=== PATIENT | male | born 1990 | race Caucasian/White ===

== ENCOUNTER 2017-07-11 23:01 | Emergency (ER) | payer OTHER ==
[~2017-07-11] VITALS: Ht 162.6 cm; Wt 74.8 kg
[2017-07-12] MEDS ORDERED: PROTONIX40 M1 PO (11:32)
== END 2017-07-12 13:01 | disposition home or self-care (01) ==
LOC: ER 23:01
DX: K29.70 Gastritis, unspecified, without bleeding (principal)